=== PATIENT | female | born 1965 | race Caucasian/White ===

== ENCOUNTER 2017-08-09 15:44 | Emergency (ER) | payer MEDICARE, MEDICAID ==
[2017-08-09 16:04] VITALS: BP 135/85
[2017-08-09] MEDS ORDERED: Ketorolac 60 MG/2 ML SDV IM ONE (16:37)
--- NOTE | 2017-08-09 20:15 | EDM.PDOC ---
ED HPI GENERAL MEDICAL PROBLEM - General Chief Complaint: Lower Extremity Injury/Pain Stated Complaint: R LEG PAIN Time Seen by Provider: 08/09/17 16:20 Source of Information: Reports: Patient History Limitations: Reports: No Limitations - History of Present Illness INITIAL COMMENTS - FREE TEXT/NARRATIVE: 52 year old female presents for evaluation and treatment of right leg pain. Reports the leg pain started about2 weeks ago and has steadily worsened. Patient reports the pain started in her right lower leg then migrated up to her right distal thigh. She is currently experiencing pain in the right proximal lower leg and behind the right knee. She reports her varicose veins are more prominent than normal. She denies any swelling, bruising, erythema, numbness, tingling, nausea or vomiting. Reports the pain is better with movement and worsens with rest. Patient is in a pain contract for chronic pain from her back and fibromyalgia. Currently on a fentanyl patch and hydrocodone as needed. She has been taking these as prescribed with no relief. Additionally she has tried ice, heat, essential oils and epsome salt baths with no relief. Patient is not on any blood thinners. No daily aspirin. Patient reports 6 weeks ago she was loading a dumpster with cardboard. She was standing in the dumpster. Reports she slipped backwards and the metal hinge of the dumpster hit her in the back of the legs. She reports she was hit in the proximal lower leg and the distal thighs. She reports she developed extensive bruising and pain. She states these symptoms have since improved. She was never evaluated for the trauma. Patient reports previous right meniscus repair. 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 OPERATOR: Reports: Other (see below) Other Treatments INDUCTION FURNACE OPERATOR: hydrocodone; Fentanyl Right Lower Leg Pain Score (Numeric/FACES): 10 - Related Data Allergies Allergy/AdvReac Type Severity Reaction Status Date / Time No Known Allergies Allergy Verified 08/09/17 16:00 Home Meds: Home Meds Divalproex Sodium [Depakote] 1,000 mg PO BID 10/24/15 [History] Estrogens, Conjugated [Premarin] 0.625 mg PO DAILY 10/24/15 [History] Hydrocodone/Acetaminophen [Hydrocodon-Acetaminophn 10-325] 10 - 325 mg PO Q4H PRN 10/24/15 [History] Ondansetron [Zofran ODT] 4 mg PO Q6H PRN 10/24/15 [History] Rizatriptan [Maxalt] 10 mg PO BID PRN 10/24/15 [History] Thrive 1 packet PO DAILY 10/24/15 [History] ALPRAZolam [Xanax] 0.5 mg PO QID PRN 08/11/16 [History] Cyclobenzaprine [Flexeril] 5 mg PO TID PRN #21 tablet 08/09/17 [Rx] fentaNYL [Fentanyl] 50 mcg TD Q72H 08/09/17 [History] Past Medical History HEENT History: Reports: Impaired Vision Other HEENT History: wears eyeglasses/contacts. Wears upper/lower dentures. 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 , Musculoskeletal History: Reports: Back Pain, Chronic, Fibromyalgia, Other (See Below) Other Musculoskeletal History: arachnoiditis Neurological History: Reports: Migraines Oncologic (Cancer) History: Reports: Colon - Past Surgical History GI Surgical History: Reports: Alejandra Fundoplication Female Surgical History: Reports: Hysterectomy Social & Family History - Tobacco Use Smoking Status *Q: Former Smoker Used Tobacco, but Quit: No Month Tobacco Last Used: 4 yrs ago - Caffeine Use Caffeine Use: Reports: None - Recreational Drug Use Recreational Drug Use: No - Living Situation & Occupation Living situation: Reports: Occupation: Employed Review of Systems - Review of Systems Review Of Systems: See Below Cardiovascular: Reports: Other (reports vericose veins are more prominent than normal ). Denies: Edema GI/Abdominal: Denies: Nausea, Vomiting Musculoskeletal: Reports: Back Pain (chronic, no worsen than normal), Leg Pain ( right) Skin: Denies: Bruising, Erythema, Wound Neurological: Denies: Numbness, Tingling ED EXAM, GENERAL - Physical Exam Exam: See Below Exam Limited By: No Limitations General Appearance: Alert, WD/WN, No Apparent Distress Respiratory/Chest: No Respiratory Distress Cardiovascular: Normal Peripheral Pulses, Regular Rate, Rhythm Peripheral Pulses: 2+: Posterior Tibial (L), Posterior Tibial (R), Dorsalis Pedis (L), Dorsalis Pedis (R) Extremities: Normal Inspection, Normal Range of Motion, Normal Capillary Refill , Trudy's Sign (right ) Neurological: Alert, Oriented, Normal Cognition Psychiatric: Normal Affect, Normal Mood Skin Exam: Warm, Dry, Normal Color Course - Vital Signs Last Recorded V/S: Last Vital Signs Temp 36.7 C 08/09/17 16:00 Pulse 71 08/09/17 16:00 Resp BP 135/85 08/09/17 16:00 Pulse Ox 99 08/09/17 16:00 - Orders/Labs/Meds Meds: Medications Discontinued Medications Generic Name Dose Route Start Last Admin Trade Name Gregory PRN Reason Stop Dose Admin Ketorolac Tromethamine 60 mg 08/09/17 16:37 08/09/17 17:03 Toradol IM 08/09/17 16:38 60 mg ONETIME ONE Administration - Radiology Interpretation Free Text/Narrative:: ultrasound of the right lower leg impression per [facility]: Negative for DVT xray of the right femur and tibia/fibula shows no acute fractures or dislocations. - Re-Assessments/Exams Free Text/Narrative Re-Assessment/Exam: 08/09/17 20:09 I reviewed the xray and ultrasound reports with the patient. Possibly her varicose veins causing the pain or possibly muscle spasms. Will try some muscle relaxers for pain relief and I will have her follow-up with her PCP. Discharge instructions as documented. Departure - Departure Time of Disposition: 20:13 Disposition: Home, Self-Care 01 Condition: Good Clinical Impression: Leg pain, right - Discharge Information Prescriptions: Cyclobenzaprine [Flexeril] 5 mg PO TID PRN #21 tablet PRN Reason: Muscle Spasm Instructions: Musculoskeletal Pain Referrals: Shivani Riley NP [Primary Care Provider] - Forms: ED Department Discharge Additional Instructions: Continue with your current pain medications as needed for discomfort. Flexeril 1 tab 3 times a day as needed for muscle pain and spasm. Continue use ice and heat to the area. Follow-up with your primary care provider next week for recheck of your symptoms. Please return to the ER if your symptoms change or worsen.
--- NOTE | 2017-08-11 11:01 | CR ---
Right tibia and fibula: AP and lateral views of the right tibia and fibula were obtained. No fracture or other abnormality is appreciated. Impression: 1. No abnormality is appreciated on two-view right tibia and fibula study. Diagnostic code #1
--- NOTE | 2017-08-11 11:01 | CR ---
Right femur: AP and lateral views of the right femur were obtained. Comparison: No prior study. No fracture or other abnormality is appreciated. Impression: 1. No abnormality is identified on two-view right femur study. Diagnostic code #1
--- NOTE | 2017-08-11 11:01 | US ---
Right lower extremity deep venous ultrasound: Duplex and color flow imaging was obtained of the right common femoral, proximal greater saphenous, superficial femoral, popliteal, posterior tibial and peroneal veins. Left common femoral vein was also evaluated. Findings: Normal phasic flow, augmentation and compression are seen. Impression: 1. No evidence of deep venous thrombosis is seen within the right lower extremity or within the left common femoral vein. Diagnostic code #1 I agree with preliminary report issued by [facility] ([facility] report finalized on 08/09/17, 7:36 PM Central Time)
== END 2017-08-09 20:32 | disposition home or self-care (01) ==
LOC: JD.ED 15:44
DX: M79.604 Pain in right leg (principal); Z79.899 Other long term (current) drug therapy; Z87.891 Personal history of nicotine dependence
CPT/HCPCS: 73552; 73590; 93971; 96372; 99284; J1885; 99283

== ENCOUNTER 2020-02-06 10:46 | Emergency (ER) | payer MEDICARE, MEDICAID ==
[2020-02-06 11:12] VITALS: BP 123/79; PULSE 70
[2020-02-06] MEDS ORDERED: Sodium Chloride 0.9% 10 ML Syringe FLUSH PRN ×2 (11:19→11:40)
[2020-02-06] MEDS ORDERED: Ondansetron 4 MG/2 ML SDV IVPUSH ONE (11:21)
[2020-02-06] MEDS ORDERED: HYDROmorphone 1 MG/ML Syringe IVPUSH ONE (11:22)
--- NOTE | 2020-02-06 11:25 | EDM.PDOC ---
ED HPI GENERAL MEDICAL PROBLEM - General Chief Complaint: Fever Stated Complaint: POST SURGICAL FEVER AND WEAKNESS Time Seen by Provider: 02/06/20 11:01 Source of Information: Reports: Patient History Limitations: Reports: No Limitations - History of Present Illness INITIAL COMMENTS - FREE TEXT/NARRATIVE: The patient presents with a fever, generalized weakness and abdominal pain. This all started Thursday night. She had a endoscopic ultrasound done with stents in the common bile duct done at [facility] in [place]. She was discharged late afternoon. She started not feeling well that night and she has been having temps of 101 and 102. She has no fever here. She also has been having upper abdominal pressure and lower abdominal pressure. She has no cough, congestion, runny nose, nausea or vomiting. She has not eaten much since the procedure. She has been drinking. She has been urinating more often but she has no dysuria. She has no numbness or weakness. She was in [place] and according to her they did not check her for COVID 19. Onset: Gradual Duration: Day(s): Location: Reports: Abdomen Quality: Reports: Sharp Severity: Moderate Improves with: Reports: None Worsens with: Reports: None Associated Symptoms: Reports: Fever/Chills, Nausea/Vomiting. Denies: Chest Pain , Cough, Headaches, Shortness of Breath Back Pain Score (Numeric/FACES): 7 - Related Data Allergies Allergy/AdvReac Type Severity Reaction Status Date / Time No Known Allergies Allergy Verified 02/06/20 11:12 Home Meds: Home Meds Divalproex Sodium [Depakote] 500 mg PO DAILY 10/24/15 [History] Estrogens, Conjugated [Premarin] 0.625 mg PO DAILY 10/24/15 [History] Hydrocodone/Acetaminophen [Hydrocodon-Acetaminophn 10-325] 10 - 325 mg PO Q4H PRN 10/24/15 [History] fentaNYL [Fentanyl] 50 mcg TOP Q72H 08/09/17 [History] diazePAM [Valium] 5 mg PO Q6H PRN 08/13/18 [History] ALPRAZolam [Xanax] 0.5 mg PO Q8H PRN 02/06/20 [History] Pantoprazole Sodium [Protonix] 40 mg PO DAILY 02/06/20 [History] Past Medical History HEENT History: Reports: Impaired Vision Other HEENT History: wears eyeglasses/contacts. Wears upper/lower dentures. 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 , Musculoskeletal History: Reports: Back Pain, Chronic, Fibromyalgia, Other (See Below) Other Musculoskeletal History: arachnoiditis Neurological History: Reports: Migraines Oncologic (Cancer) History: Reports: Colon - Past Surgical History GI Surgical History: Reports: Alejandra Fundoplication Female Surgical History: Reports: Hysterectomy Musculoskeletal Surgical History: Reports: Other (See Below) Other Musculoskeletal Surgeries/Procedures:: neck surgery C3-4 Social & Family History - Tobacco Use Smoking Status *Q: Never Smoker - Caffeine Use Caffeine Use: Reports: None - Living Situation & Occupation Living situation: Reports: Occupation: Employed ED ROS GENERAL - Review of Systems Review Of Systems: See Below Constitutional: Reports: Fever HEENT: Reports: No Symptoms Respiratory: Reports: No Symptoms Cardiovascular: Reports: No Symptoms GI/Abdominal: Reports: Abdominal Pain. Denies: Diarrhea, Nausea, Vomiting : Reports: No Symptoms Musculoskeletal: Reports: No Symptoms ED EXAM, SEPSIS - Physical Exam Exam: See Below Exam Limited By: No Limitations General Appearance: Alert, No Apparent Distress Ears: Normal External Exam Nose: Normal Inspection Head: Atraumatic, Normocephalic Neck: Normal Inspection Respiratory/Chest: No Respiratory Distress, Lungs Clear, Normal Breath Sounds Cardiovascular: Regular Rate, Rhythm, No Edema, No Murmur GI/Abdominal Exam: Soft, No Organomegaly, No Mass, Tender (Moderate tenderness to the upper and lower abdomen) Back: Normal Inspection Extremities: Normal Inspection Neurological: Alert, Oriented, No Motor/Sensory Deficits Course - Vital Signs Last Recorded V/S: Last Vital Signs Temp 97.4 F 02/06/20 11:07 Pulse 70 02/06/20 11:07 Resp 16 02/06/20 11:07 BP 123/79 02/06/20 11:07 Pulse Ox 94 L 02/06/20 11:07 - Orders/Labs/Meds Orders: Active Orders 24 hr Category Date Time Status Peripheral IV Care [RC] . DIRECTED Care 02/06/20 11:20 Active CULTURE BLOOD [BC] Stat Lab 02/06/20 11:40 Received CULTURE BLOOD [BC] Stat Lab 02/06/20 11:57 Received Sodium Chloride 0.9% [Normal Saline] 1,000 ml Med 02/06/20 11:30 Active IV ASDIRECTED Sodium Chloride 0.9% [Saline Flush] Med 02/06/20 11:19 Active 10 ml FLUSH ASDIRECTED PRN Sodium Chloride 0.9% [Saline Flush] Med 02/06/20 11:40 Active 10 ml FLUSH ONETIME PRN Blood Culture x2 Reflex Set [OM.PC] Stat Ot 02/06/20 11:19 Ordered ED Antiemetic Medication Reflex [OM.PC] Stat Ot 02/06/20 11:19 Ordered Peripheral IV Insertion Adult [OM.PC] Stat Ot 02/06/20 11:19 Ordered Medication Orders Sodium Chloride (Normal Saline) 1,000 mls @ 125 mls/hr IV ASDIRECTED MARY Last Admin: 02/06/20 12:02 Dose: 125 mls/hr Sodium Chloride (Saline Flush) 10 ml FLUSH ASDIRECTED PRN PRN Reason: Keep Vein Open Last Admin: 02/06/20 12:04 Dose: 10 ml Sodium Chloride (Saline Flush) 10 ml FLUSH ONETIME PRN PRN Reason: IV FLUSH Last Admin: 02/06/20 13:18 Dose: 10 ml Labs: Laboratory Tests 02/06/20 02/06/20 02/06/20 Range/Units 11:57 11:57 11:57 WBC 6.83 (3.98-10.04) K/mm3 RBC 4.31 (3.98-5.22) M/mm3 Hgb 12.4 (11.2-15.7) gm/dl Hct 41.2 (34.1-44.9) % MCV 95.6 H (79.4-94.8) fl MCH 28.8 (25.6-32.2) pg MCHC 30.1 L (32.2-35.5) g/dl RDW Std Deviation 40.3 (36.4-46.3) fL Plt Count 248 (182-369) K/mm3 MPV 10.4 (9.4-12.3) fl Neut % (Auto) 70.1 (34.0-71.1) % Lymph % (Auto) 18.2 L (19.3-51.7) % [place] % (Auto) 10.4 (4.7-12.5) % Eos % (Auto) 1.2 (0.7-5.8) Baso % (Auto) 0.1 (0.1-1.2) % Neut # (Auto) 4.79 (1.56-6.13) K/mm3 Lymph # (Auto) 1.24 (1.18-3.74) K/mm3 [place] # (Auto) 0.71 H (0.24-0.36) K/mm3 Eos # (Auto) 0.08 (0.04-0.36) K/mm3 Baso # (Auto) 0.01 (0.01-0.08) K/mm3 Sodium 144 (136-145) mEq/L Potassium 3.6 (3.5-5.1) mEq/L Chloride 105 (98-107) mEq/L Carbon Dioxide 31 (21-32) mEq/L Anion Gap 11.6 (5-15) BUN 10 (7-18) mg/dL Creatinine 0.6 (0.55-1.02) mg/dL Est Cr Clr Drug Dosing 101.51 mL/min Estimated GFR (MDRD) > 60 (>60) mL/min BUN/Creatinine Ratio 16.7 (14-18) Glucose 109 H (74-106) mg/dL Lactic Acid (0.4-2.0) mmol/L Calcium 8.3 L (8.5-10.1) mg/dL Ferritin 79 (8-252) ng/ml Total Bilirubin 0.5 (0.2-1.0) mg/dL AST 22 (15-37) U/L ALT 32 (14-59) U/L Alkaline Phosphatase 70 (46-116) U/L Total Protein 6.2 L (6.4-8.2) g/dl Albumin 3.2 L (3.4-5.0) g/dl Globulin 3.0 gm/dL Albumin/Globulin Ratio 1.1 (1-2) Lipase 84 (73-393) U/L Urine Color (Yellow) Urine Appearance (Clear) Urine pH (5.0-8.0) Ur Specific [place] (1.005-1.030) Urine Protein (Negative) Urine Glucose (UA) (Negative) Urine Ketones (Negative) Urine Occult Blood (Negative) Urine Nitrite (Negative) Urine Bilirubin (Negative) Urine Urobilinogen (0.2-1.0) Ur Leukocyte Esterase (Negative) Urine RBC (0-5) /hpf Urine WBC (0-5) /hpf Ur Squamous Epith Cells (0-5) /hpf Urine Bacteria (FEW) /hpf Urine Mucus (FEW) /hpf SARS-CoV-2 RNA (RT-PCR) (NEGATIVE) 02/06/20 02/06/20 02/06/20 Range/Units 11:57 12:05 14:35 WBC (3.98-10.04) K/mm3 RBC (3.98-5.22) M/mm3 Hgb (11.2-15.7) gm/dl Hct (34.1-44.9) % MCV (79.4-94.8) fl MCH (25.6-32.2) pg MCHC (32.2-35.5) g/dl RDW Std Deviation (36.4-46.3) fL Plt Count (182-369) K/mm3 MPV (9.4-12.3) fl Neut % (Auto) (34.0-71.1) % Lymph % (Auto) (19.3-51.7) % [place] % (Auto) (4.7-12.5) % Eos % (Auto) (0.7-5.8) Baso % (Auto) (0.1-1.2) % Neut # (Auto) (1.56-6.13) K/mm3 Lymph # (Auto) (1.18-3.74) K/mm3 [place] # (Auto) (0.24-0.36) K/mm3 Eos # (Auto) (0.04-0.36) K/mm3 Baso # (Auto) (0.01-0.08) K/mm3 Sodium (136-145) mEq/L Potassium (3.5-5.1) mEq/L Chloride (98-107) mEq/L Carbon Dioxide (21-32) mEq/L Anion Gap (5-15) BUN (7-18) mg/dL Creatinine (0.55-1.02) mg/dL Est Cr Clr Drug Dosing mL/min Estimated GFR (MDRD) (>60) mL/min BUN/Creatinine Ratio (14-18) Glucose (74-106) mg/dL Lactic Acid 0.6 (0.4-2.0) mmol/L Calcium (8.5-10.1) mg/dL Ferritin (8-252) ng/ml Total Bilirubin (0.2-1.0) mg/dL AST (15-37) U/L ALT (14-59) U/L Alkaline Phosphatase (46-116) U/L Total Protein (6.4-8.2) g/dl Albumin (3.4-5.0) g/dl Globulin gm/dL Albumin/Globulin Ratio (1-2) Lipase (73-393) U/L Urine Color Light yellow (Yellow) Urine Appearance Clear (Clear) Urine pH 7.0 (5.0-8.0) Ur Specific [place] 1.015 (1.005-1.030) Urine Protein Negative (Negative) Urine Glucose (UA) Negative (Negative) Urine Ketones Negative (Negative) Urine Occult Blood Trace-intact H (Negative) Urine Nitrite Negative (Negative) Urine Bilirubin Negative (Negative) Urine Urobilinogen 0.2 (0.2-1.0) Ur Leukocyte Esterase Negative (Negative) Urine RBC 5-10 H (0-5) /hpf Urine WBC 0-5 (0-5) /hpf Ur Squamous Epith Cells 0-5 (0-5) /hpf Urine Bacteria Few (FEW) /hpf Urine Mucus Few (FEW) /hpf SARS-CoV-2 RNA (RT-PCR) Negative (NEGATIVE) Meds: Medications Generic Name Dose Route Start Last Admin Trade Name Freq PRN Reason Stop Dose Admin Sodium Chloride 1,000 mls @ 125 mls/hr 02/06/20 11:30 02/06/20 12:02 Normal Saline IV 125 mls/hr ASDIRECTED MARY Administration Sodium Chloride 10 ml 02/06/20 11:19 02/06/20 12:04 Saline Flush FLUSH 10 ml ASDIRECTED PRN Administration Keep Vein Open Sodium Chloride 10 ml 02/06/20 11:40 02/06/20 13:18 Saline Flush FLUSH 10 ml ONETIME PRN Administration IV FLUSH Discontinued Medications Generic Name Dose Route Start Last Admin Trade Name Freq PRN Reason Stop Dose Admin Hydromorphone HCl 1 mg 02/06/20 11:22 02/06/20 12:02 Dilaudid IVPUSH 02/06/20 11:23 1 mg ONETIME ONE Administration Iopamidol 100 ml 02/06/20 11:40 02/06/20 13:17 Isovue-300 (61%) IVPUSH 02/06/20 11:41 100 ml ONETIME ONE Administration Ondansetron HCl 4 mg 02/06/20 11:21 02/06/20 12:04 Zofran IVPUSH 02/06/20 11:22 4 mg ONETIME ONE Administration - Re-Assessments/Exams Free Text/Narrative Re-Assessment/Exam: 02/06/20 11:42 I ordered an IV NS at 125mL/hr, zofran 4mg IV, dilaudid 1mg IV, CXR, CT of her abdomen and pelvis, blood cultures and UA. 02/06/20 15:01 Her CBC and CMP look good. Her lactic acid was normal. Her ferritin was normal. Her lipase was normal. Her UA shows no UTI. Her COVID 19 was negative. Her CXR looks good. Her CT shows intrahepatic and extrahepatic biliary air with biliary stent being seen. Mild increased stool within the colon. Hiatal hernia with previous gastric surgery. Other findings believed to be incidental. She feels a little better. I do not see a source of any infection. I will have her follow up with her surgeon. I did sent the films so he can see them. Departure - Departure Time of Disposition: 15:10 Disposition: Home, Self-Care 01 Condition: Good Clinical Impression: Abdominal pain Qualifiers: Abdominal location: upper abdomen, unspecified Qualified Code(s): R10.10 - Upper abdominal pain, unspecified Fever Qualifiers: Fever type: post-procedural Qualified Code(s): R50.82 - Postprocedural fever - Discharge Information *PRESCRIPTION DRUG MONITORING PROGRAM REVIEWED*: Not Applicable *COPY OF PRESCRIPTION DRUG MONITORING REPORT IN PATIENT PHUONG: Not Applicable Referrals: Shivani Riley NP [Primary Care Provider] - 3 Days Forms: ED Department Discharge Additional Instructions: Drink plenty of fluids. Take your medication as prescribed. Follow up with your doctors. Please return if you are worse. Sepsis Event Note - Evaluation Sepsis Screening Result: No Definite Risk - Focused Exam Vital Signs: Vital Signs Temp Pulse Resp BP Pulse Ox 02/06/20 11:07 97.4 F 70 16 123/79 94 L Date Exam was Performed: 02/06/20 Time Exam was Performed: 15:01 - My Orders Last 24 Hours: My Active Orders 02/06/20 11:19 Sodium Chloride 0.9% [Saline Flush] 10 ml FLUSH ASDIRECTED PRN Blood Culture x2 Reflex Set [OM.PC] Stat ED Antiemetic Medication Reflex [OM.PC] Stat Peripheral IV Insertion Adult [OM.PC] Stat 02/06/20 11:20 Peripheral IV Care [RC] . DIRECTED 02/06/20 11:30 Sodium Chloride 0.9% [Normal Saline] 1,000 ml IV ASDIRECTED 02/06/20 11:40 CULTURE BLOOD [BC] Stat Sodium Chloride 0.9% [Saline Flush] 10 ml FLUSH ONETIME PRN 02/06/20 11:57 CULTURE BLOOD [BC] Stat - Assessment/Plan Last 24 Hours: My Active Orders 02/06/20 11:19 Sodium Chloride 0.9% [Saline Flush] 10 ml FLUSH ASDIRECTED PRN Blood Culture x2 Reflex Set [OM.PC] Stat ED Antiemetic Medication Reflex [OM.PC] Stat Peripheral IV Insertion Adult [OM.PC] Stat 02/06/20 11:20 Peripheral IV Care [RC] . DIRECTED 02/06/20 11:30 Sodium Chloride 0.9% [Normal Saline] 1,000 ml IV ASDIRECTED 02/06/20 11:40 CULTURE BLOOD [BC] Stat Sodium Chloride 0.9% [Saline Flush] 10 ml FLUSH ONETIME PRN 02/06/20 11:57 CULTURE BLOOD [BC] Stat
[2020-02-06] MEDS ORDERED: Sodium Chloride 0.9% 1,000 ML IV SCH (11:30)
[2020-02-06] MEDS ORDERED: Iopamidol 612 MG/ML 100 ML Bottle IVPUSH ONE (11:40)
--- NOTE | 2020-02-06 13:34 | CT ---
CT abdomen and pelvis Technique: Multiple axial sections were obtained from above the dome of the diaphragm inferiorly through the pubic symphysis. Intravenous contrast was utilized. No oral contrast has been given. Comparison: Prior CT abdomen and pelvis study of 08/03/17. Findings: Atelectasis is seen within both lung bases. Intrahepatic biliary air and extrahepatic biliary air is seen with distal CBD stent being seen. Liver shows no focal parenchymal abnormality. Moderately large hiatal hernia is seen. Surgical material is seen within the upper stomach. Spleen appears normal. Adrenal glands show no nodule. Kidneys show symmetric contrast enhancement without hydronephrosis or mass. Pancreas appears within normal limits. Aorta shows no aneurysm. No retroperitoneal adenopathy or mesenteric abnormalities are seen. Appendix is seen which is normal. No pelvic mass or adenopathy is seen. No free fluid or inflammatory change is appreciated. Mild increased stool is noted within the colon. Bone window settings were reviewed which shows disc space narrowing primarily within L4-5 with degenerative apophyseal change. No acute osseous finding is seen. Impression: 1. Intrahepatic and extrahepatic biliary air with biliary stent being seen. 2. Mild increased stool within the colon. 3. Hiatal hernia with previous gastric surgery. 4. Other findings believed to be incidental as described above. Diagnostic code #3 This report was dictated in [facility]
--- NOTE | 2020-02-06 13:34 | CR ---
Chest: Portable view of the chest was obtained. Comparison: No prior chest imaging. Heart size and mediastinum are normal. Thick vertical area of atelectasis is seen behind the left heart. Lungs otherwise are clear. Prior cervical spine surgery is noted. Impression: 1. Findings as noted above. 2. Nothing acute is otherwise seen. Diagnostic code #2 This report was dictated in MDT
== END 2020-02-06 15:22 | disposition home or self-care (01) ==
LOC: JD.ED 10:46
DX: R10.10 Upper abdominal pain, unspecified (principal); R50.82 Postprocedural fever; Z79.899 Other long term (current) drug therapy; K21.9 Gastro-esophageal reflux disease without esophagitis
CPT/HCPCS: 36415; 71045; 74177; 80053; 81001; 82728; 83605; 83690; 85025; 87040; 96361; 96374; 96375; 99284; J1170; J2405; J7030; Q9967; U0002; 99283